=== PATIENT | female | born 1985 | race Caucasian/White ===

== ENCOUNTER 2016-12-02 20:08 | Emergency (ER) | payer OTHER ==
[2016-12-02 20:45] VITALS: BP 115/60
[2016-12-02] MEDS ORDERED: IBUPROFEN 800 MG TABLET PO ONE (21:04)
--- NOTE | 2016-12-02 21:04 | ER Document Report ---
ED Medical Screen (RME) - General Stated Complaint: FLU LIKE SYMPTOMS Notes: Patient is a 31-year-old female presents emergency Department with symptoms of Tuesday. Patient is admitting to fever, chills, body aches, headache, nasal drainage. has been taking clartin. Did not receive a flu vaccine this year. Febrile here at 102.1 I have greeted and performed a rapid initial assessment of this patient. A comprehensive ED assessment and evaluation of the patient, analysis of test results and completion of the medical decision making process will be conducted by additional ED providers. TRAVEL OUTSIDE OF THE [place] IN LAST 30 DAYS: No - Related Data Allergies/Adverse Reactions: No Known Allergies Allergy (Unverified 05/03/16 15:15) Past Medical History - Past Medical History Cardiac Medical History: Denies: Hx Coronary Artery Disease, Hx Heart Attack, Hx Hypertension Pulmonary Medical History: Reports: Hx Asthma - "INTERMITTENT ASTHMA" Denies: Hx Bronchitis, Hx COPD, Hx Pneumonia Neurological Medical History: Denies: Hx Cerebrovascular Accident, Hx Seizures Musculoskeltal Medical History: Reports Hx Arthritis - NECK - Immunizations Hx Diphtheria, Pertussis, Tetanus Vaccination: Yes Physical Exam - Vital signs Vitals: Temp Pulse Resp BP Pulse Ox 102.1 F H 111 H 16 115/60 99 12/02/16 20:43 12/02/16 20:43 12/02/16 20:43 12/02/16 20:43 12/02/16 20:43 Course - Vital Signs Vital signs: Temp Pulse Resp BP Pulse Ox 102.1 F H 111 H 16 115/60 99 12/02/16 20:43 12/02/16 20:43 12/02/16 20:43 12/02/16 20:43 12/02/16 20:43
--- NOTE | 2016-12-02 22:18 | ER Document Report ---
ED Flu Like - General Mode of Arrival: Ambulatory Information source: Patient TRAVEL OUTSIDE OF THE [place] IN LAST 30 DAYS: No - General Chief Complaint: Flu Symptoms Stated Complaint: FLU LIKE SYMPTOMS Notes: Patient is a 31-year-old female that presents to the emergency department today with complaints of 4 days of fevers, nasal congestion, sneezing, and a cough. Patient states that she has a history of "intermittent asthma". Patient states she does not believe she is however her and her significant other have been trying to get for around one year. (STEFFEN GALINDO) - Related Data Allergies/Adverse Reactions: No Known Allergies Allergy (Unverified 05/03/16 15:15) Past Medical History - General Information source: Patient - Social History Smoking Status: Never Smoker Cigarette use (# per day): No Chew tobacco use (# tins/day): No Frequency of alcohol use: Rare Drug Abuse: None Lives with: Family Family History: Reviewed & Not Pertinent Patient has suicidal ideation: No Patient has homicidal ideation: No Pulmonary Medical History: Reports: Hx Asthma - "INTERMITTENT ASTHMA" Musculoskeltal Medical History: Reports Hx Arthritis - NECK Surgical Hx: Negative - Immunizations Hx Diphtheria, Pertussis, Tetanus Vaccination: Yes Review of Systems - Review of Systems Constitutional: See HPI, Fever EENT: See HPI, Nose congestion Cardiovascular: No symptoms reported Respiratory: See HPI, Cough Gastrointestinal: No symptoms reported Genitourinary: No symptoms reported Female Genitourinary: No symptoms reported Musculoskeletal: No symptoms reported Skin: No symptoms reported Hematologic/Lymphatic: No symptoms reported Neurological/Psychological: No symptoms reported -: Yes All other systems reviewed and negative Physical Exam - General General appearance: Appears well In distress: None - HEENT Head: Normocephalic, Atraumatic Eyes: Normal Nasal: Clear rhinorrhea - congestion - Respiratory Respiratory status: No respiratory distress Chest status: Nontender - Cardiovascular Rhythm: Regular Heart sounds: Normal auscultation Murmur: No - Abdominal Inspection: Normal Distension: No distension Bowel sounds: Normal - Extremities General upper extremity: Normal inspection, Normal ROM. No: Edema General lower extremity: Normal inspection, Normal ROM. No: Edema - Neurological Neuro grossly intact: Yes Cognition: Normal Orientation: AAOx4 Speech: Normal - Psychological Associated symptoms: Normal affect, Normal mood - Skin Skin Temperature: Warm Skin Moisture: Dry Skin Color: Normal Course - Re-evaluation Re-evalutation: 12/02/16 23:43 I personally performed the services described in the documentation, reviewed and edited the documentation which was dictated to my scribe in my presence, and it accurately records my words and actions. Patient presents emergency Department with fever chills congestion and body aches mild cough for the past 2 days temperature 102.1. Hemodynamically stable well-appearing nontoxic no acute ear infection and strep lungs are clear no clinical concerns for pneumonia no abdominal tenderness guarding rebound rigidity patient is positive for the flu ordered Tamiflu your prescription for Tamiflu follow up with her primary care physician in 2-3 days supportive care and discussed reasons for ED return sooner (GWEN DUMONT) - Vital Signs Vital signs: Temp Pulse Resp BP Pulse Ox 97.2 F 77 16 115/60 96 12/03/16 00:30 12/03/16 00:30 12/03/16 00:30 12/02/16 20:43 12/03/16 00:30 Discharge - Discharge Clinical Impression: Influenza A Condition: Stable Disposition: HOME, SELF-CARE Additional Instructions: Influenza What are conditions that should receive medical attention? The development of difficulty breathing. Lip color changes to blue or purple. Persistent vomiting and unable to keep liquids down with signs of dehydration such as: dizziness when standing, unable to urinate, or if child/infant is crying no tears are noticed. Is less responsive than normal or becomes confused. How do I decrease the spread of flu in my home? Taking care of the sick patient at home: Keep the sick person in a room separate from the common areas of the house. Keep the "sickroom" door closed. If the person with the flu needs to leave the home, they should cover their nose/mouth when coughing or sneezing and wear a disposable (surgical) mask if available. These masks may be available at your local pharmacy, medical supply and hardware store. If the sick person is in common areas of the house, have them wear a surgical mask. If possible, have the sick person use a separate bathroom that should be cleaned daily with a household disinfectant. If you are the caregiver: Avoid being face to face with the sick adult person as much as possible. Try to stay at least 6 feet away and wear a disposable surgical mask when possible. When holding small children who are sick, place their chin on your shoulder so that they will not cough in your face. Wash your hands after you touch the sick person or handle their tissues and laundry. Wear a mask if you leave home, as you may be infected from taking care of someone and not know it yet. Watch yourself and others in the home for flu symptoms and contact your doctor if symptoms occur. NOTE: Antiviral medication used to reduce the symptoms of the flu works only if taken within 48 hours, and best within 24 hours of symptom onset. Household Cleaning, laundry and waste disposal: Tissues and other disposable items used by the sick person should be thrown away in the trash. Wash your hands after touching these used items. No special waste disposal is required. Keep surfaces (especially bedside tables, bathroom surfaces, and toys for children) clean by wiping them down with a safe household disinfectant according to the directions on the product label. Per CDC advice, most people will not receive testing to confirm flu. Also based on the person's health history and onset of symptoms, not all patients will receive prescriptions for antiviral medications. If you have questions related to this, please ask your healthcare provider. For more information, you can call the Centers for Disease Control and Prevention (CDC) Hotline at 7-450-[employer] This line is available in [place] and [place], 24 hours a day, 7 days a week. Or www.[employer] or www.cdc.gov Flu-Like Illness Home Instructions: The influenza virus infection can cause a wide rage of symptoms, including: Fever, cough, sore throat, body aches, headaches, chills, fatigue, with some patients reporting diarrhea and vomiting Like seasonal influenza A, H1N1 ("swine flu")in humans can vary in severity from mild to severe Severe illness with pneumonia, respiratory failure and even is possible Certain groups might be more likely to develop a severe illness from H1N1 infection. Sometimes bacterial infections may occur at the same time as or after infection with influenza viruses and lead to pneumonias, ear infections, or sinus infections. How Flu Spreads The main way that influenza viruses spread is through respiratory droplets of coughs and sneezes. This can happen when someone with the infection coughs or sneezes and the particles fly through the air and land on other people and surfaces. If the person covers their mouth and nose with their hand but does not wash their hands immediately, then these germs are passed onto the next object that they touch. People with Influenza A or suspected H1N1 (swine flu) who are cared for at home should: Check with their doctor about any special care that they might need if they are or have a health condition such as diabetes, heart disease, asthma or emphysema. Also, limit caregiver to one (if possible). women or those with chronic health conditions should not take care of the flu patient unless necessary. Check with their doctor about whether or not medications are needed that may lessen the symptoms of the flu. Stay at home until 24 hours fever free without the use of fever reducing medication. Get plenty of rest and avoid other healthy people in your home. Drink plenty of clear liquids to keep from getting dehydrated. Take medications like Tylenol (Acetaminophen), Advil/Motrin/Nuprin ( Ibuprofen) or Aleve (Naproxen) for fevers and aches. All children under the age of 18 years of age should not take aspirin or products containing aspirin (e.g. Pepto Bismol), as this can cause a rare serious illness called Brennan Syndrome. Over the counter medications for flu and colds may help, but it is very important to follow the package directions. Remember that the medicine may help the symptoms, but it will not help prevent others from getting sick if they are around you. Cover coughs and sneezes using your bent arm. Clean hands with soap and water or an alcohol-based hand rub often, especially after using tissues to cough or sneeze. Encourage hand washing frequently for all people living in the home! The sick person should not have visitors other than caregivers. Encourage concerned loved ones to call instead of visit. Avoid close contact with others-do not go to work or school while sick. Prescriptions: Oseltamivir Phosphate [Tamiflu 75 mg Capsule] 75 mg PO NOW #5 capsule Referrals: [facility] [Provider Group] - Follow up in 3-5 days (In 2-3 days return for increasing worsening or new symptoms) Scribe Documentation - Scribe Written by Julio:: Julio Mera, 12/03/2016 0026 acting as scribe for :: Hector
[2016-12-02] MEDS ORDERED: OSELTAMIVIR PHOSPHATE 75 MG CAPSULE PO ONE (23:43)
== END 2016-12-03 00:40 | disposition home or self-care (01) ==
LOC: ER 20:08
DX: J11.1 Influenza due to unidentified influenza virus with other respiratory manifestations (principal); R50.9 Fever, unspecified; R09.81 Nasal congestion; R05 Cough; R06.7 Sneezing; J34.89 Other specified disorders of nose and nasal sinuses; R52 Pain, unspecified; J45.20 Mild intermittent asthma, uncomplicated
CPT/HCPCS: 99283; 87804; J3490

== ENCOUNTER 2016-12-15 10:34 | Emergency (ER) | payer OTHER, MEDICAID ==
--- NOTE | 2016-12-15 10:56 | ER Document Report ---
ED Medical Screen (RME) - General Stated Complaint: ABDOMINAL PAIN Notes: 31 yo female c/o lower abdominal cramping, spotting x 1 day. G1. 5 wks gestation. no dysuria treated for flu approx 3 weeks ago hx/o ovarian cysts TRAVEL OUTSIDE OF THE [place] IN LAST 30 DAYS: No - Related Data Allergies/Adverse Reactions: No Known Allergies Allergy (Unverified 05/03/16 15:15) Past Medical History - Past Medical History Cardiac Medical History: Denies: Hx Coronary Artery Disease, Hx Heart Attack, Hx Hypertension Pulmonary Medical History: Reports: Hx Asthma - "INTERMITTENT ASTHMA" Denies: Hx Bronchitis, Hx COPD, Hx Pneumonia Neurological Medical History: Denies: Hx Cerebrovascular Accident, Hx Seizures Renal/ Medical History: Denies: Hx Peritoneal Dialysis Musculoskeltal Medical History: Reports Hx Arthritis - NECK - Immunizations Hx Diphtheria, Pertussis, Tetanus Vaccination: Yes Physical Exam - Vital signs Vitals: Temp Pulse Resp BP Pulse Ox 98.6 F 71 16 114/62 100 12/15/16 10:46 12/15/16 10:46 12/15/16 10:46 12/15/16 10:46 12/15/16 10:46 Course - Vital Signs Vital signs: Temp Pulse Resp BP Pulse Ox 98.6 F 71 16 114/62 100 12/15/16 10:46 12/15/16 10:46 12/15/16 10:46 12/15/16 10:46 12/15/16 10:46
[2016-12-15 12:06] LABS: ABSOLUTE EOSINOPHILS # (AUTO) 0.1 10^3/uL (0.0-0.6); ABSOLUTE MONOCYTES (AUTO) 0.6 10^3/uL (0.1-1.4); ABSOLUTE NEUT (AUTO) 4.4 10^3/uL (1.7-8.2); BASOPHILS % (AUTO) 0.6 % (0-2); HEMATOCRIT 34.6 % (36.0-47.0); HEMOGLOBIN 11.5 g/dL (12.0-15.5); HGB HCT DIFFERENCE -0.1; LYMPHOCYTES % (AUTO) 15.9 % (13-45); MEAN CORPUSCULAR HEMOGLOBIN 29.6 pg (27.0-33.4); MEAN CORPUSCULAR HGB CONC 33.3 g/dL (32.0-36.0); MEAN CORPUSCULAR VOLUME 89 fl (80-97); MONOCYTES % (AUTO) 10.1 % (3-13); RED CELL DISTRIBUTION WIDTH 12.8 % (11.5-14.0); SEGMENTED NEUTROPHILS % (AUTO) 71.4 % (42-78); WHITE BLOOD COUNT 6.2 10^3/uL (4.0-10.5)
[2016-12-15 12:21] LABS: AMORPHOUS SEDIMENT,URINE 1+ /HPF; APPEARANCE,URINE TURBID; BILIRUBIN,URINE NEGATIVE (NEGATIVE); GLUCOSE, URINE NEGATIVE (NEGATIVE); KETONES,URINE NEGATIVE (NEGATIVE); LEUKOCYTE ESTERASE,URINE TRACE (NEGATIVE); NITRITE,URINE NEGATIVE (NEGATIVE); PROTEIN,URINE NEGATIVE (NEGATIVE); URINE SPECIFIC GRAVITY 1.018
--- NOTE | 2016-12-15 12:54 | ER Document Report ---
ED General - General Chief Complaint: Abdominal Pain Stated Complaint: ABDOMINAL PAIN Mode of Arrival: Ambulatory Information source: Patient Notes: Patient presents emergency department with complaints of mild abdominal cramping and vaginal spotting. Patient reports she is approximately 5 weeks gestation. Patient reports some abdominal cramping yesterday and today. Patient also reports some vaginal bleeding when she wiped last week yesterday and today. Denies trauma. Denies fever vomiting diarrhea. Reports recent treatment for. Reports she hasn't vomited since Tuesday. Patient is extremely anxious she reports she's been told she was never going to be due to a history of ovarian cysts. She has had a + home test and confirmed at the [facility]. She attempted to go to the health department but was told she had to be at least 8 weeks .. Patient is . TRAVEL OUTSIDE OF THE [place] IN LAST 30 DAYS: No - HPI Onset: Other - last week, yesterday and today Quality of pain: Cramping Severity: Mild Pain Level: 2 Associated symptoms: None Exacerbated by: Denies Relieved by: Denies Similar symptoms previously: Yes Recently seen / treated by doctor: No - Related Data Allergies/Adverse Reactions: No Known Allergies Allergy (Unverified 05/03/16 15:15) Past Medical History - General Information source: Patient Last Menstrual Period: 11/10/16 - Social History Smoking Status: Former Smoker Cigarette use (# per day): No Frequency of alcohol use: None Drug Abuse: None Occupation: none Lives with: Family Family History: Reviewed & Not Pertinent Patient has suicidal ideation: No Patient has homicidal ideation: No - Past Medical History Cardiac Medical History: Denies: Hx Coronary Artery Disease, Hx Heart Attack, Hx Hypertension Pulmonary Medical History: Reports: Hx Asthma - "INTERMITTENT ASTHMA" Denies: Hx Bronchitis, Hx COPD, Hx Pneumonia Neurological Medical History: Denies: Hx Cerebrovascular Accident, Hx Seizures Renal/ Medical History: Denies: Hx Peritoneal Dialysis Musculoskeltal Medical History: Reports Hx Arthritis - NECK Surgical Hx: Negative - Immunizations Hx Diphtheria, Pertussis, Tetanus Vaccination: Yes Review of Systems - Review of Systems Notes: Review HPI for review of systems., All other systems negative Physical Exam - Vital signs Vitals: Temp Pulse Resp BP Pulse Ox 98.6 F 71 16 114/62 100 12/15/16 10:46 12/15/16 10:46 12/15/16 10:46 12/15/16 10:46 12/15/16 10:46 - Notes Notes: PHYSICAL EXAMINATION: GENERAL: Well-appearing and in no acute distress anxious HEAD: Atraumatic, normocephalic. EYES: extraocular movements intact, sclera anicteric, conjunctiva are normal. ENT: nares patent, . Moist mucous membranes. NECK: Normal range of motion, supple without lymphadenopathy LUNGS: CTAB and equal. No wheezes rales or rhonchi. HEART: Regular rate and rhythm without murmurs ABDOMEN: Soft, no tenderness. No guarding, no rebound EXTREMITIES: Normal range of motion, no pitting edema. No cyanosis. NEUROLOGICAL: Cranial nerves grossly intact. Normal sensory/motor PSYCH: Normal mood, normal affect. SKIN: Warm, Dry, normal turgor, no rashes or lesions noted Course - Re-evaluation Re-evalutation: 12/15/16 15:42 pt instructed on US and hcg level. Instructed inconclusive but possible miscarriage. Instructed on fu with repeat HCG. She verbalized understanding, is in no distress. She was instructed to return to ed for severe pain,fever, concerns. - Vital Signs Vital signs: Temp Pulse Resp BP Pulse Ox 98.6 F 71 16 114/62 100 12/15/16 10:46 12/15/16 10:46 12/15/16 10:46 12/15/16 10:46 12/15/16 10:46 - Laboratory Result Diagrams: 12/15/16 11:20 12/15/16 11:20 Laboratory results interpreted by me: 12/15/16 12/15/16 12/15/16 11:20 11:20 11:20 Hgb 11.5 L Hct 34.6 L Beta HCG, Quant 1080.40 H Urine Urobilinogen 2.0 H Ur Leukocyte Esterase TRACE H Discharge - Discharge Clinical Impression: Abdominal cramping Qualifiers: Weeks of gestation: less than 8 weeks Qualified Code(s): Z3A.01 - Less than 8 weeks gestation of UTI (urinary tract infection) Qualifiers: Urinary tract infection type: site unspecified Hematuria presence: without hematuria Qualified Code(s): N39.0 - Urinary tract infection, site not specified Condition: Stable Disposition: HOME, SELF-CARE Instructions: Abdominal Pain ([facility]), ([facility]), [facility], [facility] [place], Cephalexin ([facility]) Additional Instructions: *You have been evaluated for abdominal cramping, , UTI *The Ultrasound was inconclusive today *Your HCG level was 1080.40. Follow up for repeat HCG on December [address] [facility]. Contact the nurse at [phone] for results 2 hours after the lab is drawn between the hours of [phone] or contact Pat December 18 at [phone] *Take medication as prescribed for the UTI *Follow up with a primary care provider, [facility] or the health department within one week for recheck *Return to ED for worsening condition, changes, needs, increased abdominal pain , vaginal bleeding, concerns Prescriptions: Cephalexin Monohydrate [Keflex 250 Mg Capsule] 250 mg PO QID #20 capsule
[2016-12-15 13:34] LABS: ALANINE AMINOTRANSFERASE 26 U/L (9-52); ALKALINE PHOSPHATASE 47 U/L (38-126); ANION GAP 12 (5-19); ASPARTATE AMINO TRANSFERASE 16 U/L (14-36); BILIRUBIN,DIRECT 0.2 mg/dL (0.0-0.4); BILIRUBIN,TOTAL 0.4 mg/dL (0.2-1.3); BLOOD UREA NITROGEN 11 mg/dL (7-20); CALCIUM 9.9 mg/dL (8.4-10.2); CARBON DIOXIDE 25 mmol/L (22-30); CHLORIDE 103 mmol/L (98-107); CREATININE RESULT 0.68 mg/dL (0.52-1.25); GLUCOSE 88 mg/dL (75-110); SODIUM 140.1 mmol/L (137-145)
[2016-12-15 21:51] VITALS: BP 109/60
== END 2016-12-15 15:44 | disposition home or self-care (01) ==
LOC: ER 10:34
DX: O23.41 Unspecified infection of urinary tract in pregnancy, first trimester (principal); O26.851 Spotting complicating pregnancy, first trimester; O26.891 Other specified pregnancy related conditions, first trimester; R10.9 Unspecified abdominal pain; O99.341 Other mental disorders complicating pregnancy, first trimester; F41.9 Anxiety disorder, unspecified; O99.511 Diseases of the respiratory system complicating pregnancy, first trimester; J45.909 Unspecified asthma, uncomplicated; Z3A.08 8 weeks gestation of pregnancy; Z87.42 Personal history of other diseases of the female genital tract
CPT/HCPCS: 36415; 76817; 80053; 81001; 84702; 85025; 86900; 86901; 99284

== ENCOUNTER → 2016-12-17 | Outpatient (CLI) | payer MEDICAID, OTHER | LOC: OD 13:32 | PROVIDERS: ATTEND Nurse Practitioner Acute Care | DX: O23.40 Unspecified infection of urinary tract in pregnancy, unspecified trimester (principal) | CPT/HCPCS: 36415; 84702 ==

== ENCOUNTER → 2017-01-06 | Outpatient (CLI) | payer MEDICAID, OTHER | LOC: RAD 14:05 | PROVIDERS: ATTEND Nurse Practitioner Women's Health | DX: Z34.01 Encounter for supervision of normal first pregnancy, first trimester (principal) | CPT/HCPCS: 36415; 76817; 84702 ==

== ENCOUNTER → 2017-01-10 | Outpatient (CLI) | payer MEDICAID, OTHER | LOC: OCH 09:39 | DX: Z34.01 Encounter for supervision of normal first pregnancy, first trimester (principal) | CPT/HCPCS: 36415; 84702 ==

== ENCOUNTER → 2017-01-17 | Outpatient (CLI) | payer MEDICAID, OTHER | LOC: OD 11:30 | PROVIDERS: ATTEND Obstetrics & Gynecology | DX: O36.80X0 Pregnancy with inconclusive fetal viability, not applicable or unspecified (principal) | CPT/HCPCS: 36415; 84702 ==

== ENCOUNTER 2017-01-18 16:01 | Observation (INO) | payer MEDICAID, OTHER ==
[2017-01-18] MEDS ORDERED: METOCLOPRAMIDE HCL INJ/PF 10 MG/2 ML SDV IV PRN (16:38)
[2017-01-18] MEDS: RINGERS SOLUTION,LACTATED 1,000 ML IV PRN (16:54)
[2017-01-18 17:21] LABS: ABSOLUTE LYMPHOCYTES (AUTO) 0.8 10^3/uL (0.5-4.7); ABSOLUTE MONOCYTES (AUTO) 0.3 10^3/uL (0.1-1.4); ABSOLUTE NEUT (AUTO) 8.1 10^3/uL (1.7-8.2); BASOPHILS % (AUTO) 0.4 % (0-2); EOSINOPHILS % (AUTO) 0.4 % (0-6); HEMATOCRIT 33.6 % (36.0-47.0); HEMOGLOBIN 11.4 g/dL (12.0-15.5); HGB HCT DIFFERENCE 0.6; LYMPHOCYTES % (AUTO) 8.2 % (13-45); MEAN CORPUSCULAR HEMOGLOBIN 30.3 pg (27.0-33.4); MEAN CORPUSCULAR HGB CONC 33.8 g/dL (32.0-36.0); MEAN CORPUSCULAR VOLUME 90 fl (80-97); MONOCYTES % (AUTO) 3.6 % (3-13); RED BLOOD COUNT 3.75 10^6/uL (3.72-5.28); SEGMENTED NEUTROPHILS % (AUTO) 87.4 % (42-78); WHITE BLOOD COUNT 9.3 10^3/uL (4.0-10.5)
[2017-01-18] MEDS ORDERED: ONDANSETRON 4 MG TAB.RAPDIS PO PRN (17:38)
[2017-01-18] MEDS ORDERED: ONDANSETRON 4 MG TAB.RAPDIS ONE (17:39)
[2017-01-18] MEDS: HYDROMORPHONE HCL INJ/PF 2 MG/ML AMPULE IV PRN ×2 (17:46→22:35)
[2017-01-18 18:47] LABS: APPEARANCE,URINE SLIGHTLY-CLOUDY; BILIRUBIN,URINE NEGATIVE (NEGATIVE); GLUCOSE, URINE 50 mg/dL (NEGATIVE); KETONES,URINE NEGATIVE (NEGATIVE); LEUKOCYTE ESTERASE,URINE NEGATIVE (NEGATIVE); NITRITE,URINE NEGATIVE (NEGATIVE); PROTEIN,URINE 100 mg/dL (NEGATIVE); URINE SPECIFIC GRAVITY 1.012; UROBILINOGEN,URINE NEGATIVE mg/dL (<2.0)
[2017-01-18] MEDS ORDERED: PROMETHAZINE HCL 25 MG SUPP.RECT PR PRN (22:00)
[2017-01-19] MEDS ORDERED: PROMETHAZINE HCL 25 MG TABLET PO SCH
[2017-01-19] MEDS: RINGERS SOLUTION,LACTATED 1,000 ML IV PRN (00:08)
[2017-01-19 08:18] LABS: ABSOLUTE EOSINOPHILS # (AUTO) 0.2 10^3/uL (0.0-0.6); ABSOLUTE LYMPHOCYTES (AUTO) 1.5 10^3/uL (0.5-4.7); ABSOLUTE MONOCYTES (AUTO) 0.4 10^3/uL (0.1-1.4); ABSOLUTE NEUT (AUTO) 3.9 10^3/uL (1.7-8.2); BASOPHILS % (AUTO) 0.5 % (0-2); EOSINOPHILS % (AUTO) 3.3 % (0-6); HEMATOCRIT 29.4 % (36.0-47.0); HEMOGLOBIN 9.9 g/dL (12.0-15.5); HGB HCT DIFFERENCE 0.3; LYMPHOCYTES % (AUTO) 24.4 % (13-45); MEAN CORPUSCULAR HEMOGLOBIN 30.5 pg (27.0-33.4); MEAN CORPUSCULAR HGB CONC 33.6 g/dL (32.0-36.0); MEAN CORPUSCULAR VOLUME 91 fl (80-97); MONOCYTES % (AUTO) 6.8 % (3-13); RED BLOOD COUNT 3.24 10^6/uL (3.72-5.28); RED CELL DISTRIBUTION WIDTH 13.2 % (11.5-14.0)
--- NOTE | 2017-01-19 13:00 | PDOC PROGRESS REPORT ---
Subjective-OB Subjective: Post Delivery Day: 31 year old. Denies any needs at this time Patient wanting to go home, scant bleeding Physical Exam (OB) Vital Signs: Temp Pulse Resp BP Pulse Ox 98.0 F 76 16 100/51 L 100 01/19/17 12:23 01/19/17 12:23 01/19/17 12:23 01/19/17 12:23 01/19/17 12:23 Intake & Output 01/18/17 01/19/17 01/20/17 06:59 06:59 06:59 Weight 52.617 kg - Abdomen Hernia Present: No Objective-Diagnostic Laboratory: 01/19/17 07:15 01/18/17 01/18/17 01/18/17 17:12 17:58 18:00 WBC 9.3 RBC 3.75 Hgb 11.4 L Hct 33.6 L MCV 90 MCH 30.3 MCHC 33.8 RDW 13.0 Plt Count 180 Seg Neutrophils % 87.4 H Lymphocytes % 8.2 L Monocytes % 3.6 Eosinophils % 0.4 Basophils % 0.4 Absolute Neutrophils 8.1 Absolute Lymphocytes 0.8 Absolute Monocytes 0.3 Absolute Eosinophils 0.0 Absolute Basophils 0.0 Urine Color RED Urine Appearance SLIGHTLY-CLOUDY Urine pH 6.0 Ur Specific [place] 1.012 Urine Protein 100 H Urine Glucose (UA) 50 H Urine Ketones NEGATIVE Urine Blood LARGE H Urine Nitrite NEGATIVE Ur Leukocyte Esterase NEGATIVE Urine WBC (Auto) 1 Urine RBC (Auto) >182 Blood Type A POSITIVE Antibody Screen NEGATIVE 01/19/17 07:15 WBC 6.0 RBC 3.24 L Hgb 9.9 L Hct 29.4 L MCV 91 MCH 30.5 MCHC 33.6 RDW 13.2 Plt Count 153 Seg Neutrophils % 65.0 Lymphocytes % 24.4 Monocytes % 6.8 Eosinophils % 3.3 Basophils % 0.5 Absolute Neutrophils 3.9 Absolute Lymphocytes 1.5 Absolute Monocytes 0.4 Absolute Eosinophils 0.2 Absolute Basophils 0.0 Urine Color Urine Appearance Urine pH Ur Specific [place] Urine Protein Urine Glucose (UA) Urine Ketones Urine Blood Urine Nitrite Ur Leukocyte Esterase Urine WBC (Auto) Urine RBC (Auto) Blood Type Antibody Screen Assessment and Plan(PN) - Assessment and Plan (1) Spontaneous Is this a current diagnosis for this admission?: Yes - Time Spent with Patient Time with patient: Less than 15 minutes Medications reviewed and adjusted accordingly: Yes - Disposition Anticipated Discharge: Home - homw today
[2017-01-19 13:02] VITALS: BP 115/60
--- NOTE | 2017-01-19 13:02 | PDOC DISCHARGE SUMMARY ---
Final Diagnosis Discharge Date: 01/19/17 - Final Diagnosis (1) Spontaneous Is this a current diagnosis for this admission?: Yes Discharge Data - Discharge Medication Home Medications: No Home Medications 01/18/17 Gestational Age: 10 weeks - Diagnosis Test Laboratory: Temp Pulse Resp BP Pulse Ox 98.0 F 76 16 100/51 L 100 01/19/17 12:23 01/19/17 12:23 01/19/17 12:23 01/19/17 12:23 01/19/17 12:23 01/18/17 01/19/17 17:12 07:15 RBC 3.75 3.24 L Hgb 11.4 L 9.9 L Hct 33.6 L 29.4 L - Discharge information/Instructions Discharge Activity: Activity As Tolerated Discharge Diet: As Tolerated, Regular Disposition: HOME, SELF-CARE [facility] in: 4, Weeks
== END 2017-01-19 13:55 | disposition home or self-care (01) ==
LOC: 2S 16:01
PROVIDERS: ADMIT Obstetrics & Gynecology; ATTEND Obstetrics & Gynecology
DX: O03.9 Complete or unspecified spontaneous abortion without complication (principal); O02.0 Blighted ovum and nonhydatidiform mole
CPT/HCPCS: 86900; 86901; 36415 ×2; 86850; 84702 ×2; 85025 ×2; 81025; 81001; 76817; 93976; S0119; J2765; J1170; J7120 ×2